=== PATIENT | male | born 1985 | race Two or more races ===

== ENCOUNTER 2017-04-01 08:26 | Emergency (ER) | payer OTHER ==
[2017-04-01 08:41] VITALS: PULSE 74; RESP 18; TEMP 98; O2SAT 97
[2017-04-01] MEDS ORDERED: DEXAMETHASONE 4 MG TAB PO ONE (08:48)
--- NOTE | 2017-04-01 08:52 | EDPHY ---
H & P Stated Complaint: c/o lower back pain s/p working out this am - took 600motrin/ flexeril 1 hr Time Seen by Provider: 04/01/17 08:41 HPI/ROS: CHIEF COMPLAINT: Low back pain HISTORY OF PRESENT ILLNESS: The patient is a 32-year-old man with a history of lumbar disc bulges and sciatica who comes to the emergency department complaining of low back pain with radiation down the left leg. He states that this is typical of his sciatica symptoms. He has been seen at [facility] [id number] in [place] and received steroid injections 1 month ago. He has been taking meloxicam daily as well as Flexeril p.r.n.. Yesterday played volleyball all day long and then worked out this morning. He states that during the workout he began have pain and stiffness in his low back and radiation down his left leg. No bowel or bladder abnormalities. Normal strength. Able to ambulate but with significant pain. No fever. No recent trauma. REVIEW OF SYSTEMS: Constitutional: denies: chills, fever, recent illness, recent injury EENTM: denies: blurred vision, double vision, nose congestion Respiratory: denies: cough, shortness of breath Cardiac: denies: chest pain, irregular heart rate, lightheadedness, palpitations Gastrointestinal/Abdominal: denies: abdominal pain, diarrhea, nausea, vomiting, blood streaked stools Genitourinary: denies: dysuria, frequency, hematuria, pain Musculoskeletal: See HPI Skin: denies: lesions, rash, jaundice, bruising Neurological: denies: headache, numbness, paresthesia, tingling, dizziness, weakness Hematologic/Lymphatic: denies: blood clots, easy bleeding, easy bruising Immunologic/allergic: denies: HIV/AIDS, transplant EXAM: GENERAL: Well-appearing, well-nourished and in no acute distress. HEAD: Atraumatic, normocephalic. EYES: Pupils equal round and reactive to light, extraocular movements intact, sclera anicteric, conjunctiva are normal. ENT: TMs normal, nares patent, oropharynx clear without exudates. Moist mucous membranes. NECK: Normal range of motion, supple without lymphadenopathy or JVD. LUNGS: Breath sounds clear to auscultation bilaterally and equal. No wheezes rales or rhonchi. HEART: Regular rate and rhythm without murmurs, rubs or gallops. ABDOMEN: Soft, nontender, normoactive bowel sounds. No guarding, no rebound. No masses appreciated. BACK: Pain at L5 region radiating to left gluteus and posterior leg. Normal reflexes and sensation. Normal strength. No paresthesias or numbness. No bowel or bladder abnormalities. EXTREMITIES: Normal range of motion, no pitting or edema. No clubbing or cyanosis. NEUROLOGICAL: Cranial nerves II through XII grossly intact. Normal speech, normal gait. 5/5 strength, normal movement in all extremities, normal sensation PSYCH: Normal mood, normal affect. SKIN: Warm, dry, normal turgor, no visible rashes or lesions. Source: Patient Exam Limitations: No limitations - Personal History Current Tetanus Diphtheria and Acellular Pertussis (TDAP): Yes - Medical/Surgical History Hx Asthma: No Hx Chronic Respiratory Disease: No Hx Diabetes: No Hx Cardiac Disease: No Hx Renal Disease: No Hx Cirrhosis: No Other PMH: chroinic back pain- steriod shot in Feb with some relief - Social History Smoking Status: Former smoker Alcohol Use: Sober Drug Use: None Constitutional: Initial Vital Signs Temperature (C) 36.6 C 04/01/17 08:38 Heart Rate 74 04/01/17 08:38 Respiratory Rate 18 04/01/17 08:38 Blood Pressure 124/62 H 04/01/17 08:38 O2 Sat (%) 97 04/01/17 08:38 O2 Delivery Mode Room Air Allergies/Adverse Reactions: No Known Allergies Allergy (Unverified 04/01/17 08:38) Home Medications: Medication Instructions Recorded Flexeril 04/01/17 Lidocaine [Lidoderm] 1 each TP DAILY #7 adh..patch 04/01/17 MOTRIN 04/01/17 Meloxicam 7.5 mg PO DAILY #20 tablet 04/01/17 Medical Decision Making ED Course/Re-evaluation: We discussed our nonnarcotic policy. The patient was hoping for something "stronger ". We will treat him with a dose of steroids, refill his meloxicam which he ran out of and a lidocaine patch. He will follow up with the youth services specialist. I encouraged him to rest and recover. He understands and agrees with this plan. Differential Diagnosis: Partial list of the Differential diagnosis considered include but were not limited to; low back strain, sciatica, and although unlikely based on the history and physical exam, I also considered fracture, dislocation, spinal cord injury. I discussed these differential diagnoses and the plan with the patient as well as the usual and expected course. The patient understands that the diagnosis is provisional and that in medicine we are not always correct and that further workup is often warranted. Usual and customary warnings were given. All of the patient's questions were answered. The patient was instructed to return to the emergency department should the symptoms at all worsen or return, otherwise to followup with the physician as we discussed. - Data Points Medications Given: Discontinued Medications Dexamethasone (Decadron) 10 mg PO EDNOW ONE Stop: 04/01/17 08:49 Last Admin: 04/01/17 09:10 Dose: 10 mg Lidocaine (Lidoderm 5%) 1 ea TD DAILY PO Stop: 09/28/17 08:59 Last Admin: 04/01/17 09:11 Dose: 1 ea Departure - Departure Disposition: Home, Routine, Self-Care Clinical Impression: Sciatica of left side Low back pain Qualifiers: Chronicity: chronic Back pain laterality: left Sciatica presence: with sciatica Sciatica laterality: sciatica of left side Qualified Code(s): M54.42 - Lumbago with sciatica, left side Condition: Fair Instructions: Lidocaine Patch (On the skin), Sciatica (ED) Referrals: Tina Pearce MD [[facility] [place]] - As per Instructions Prescriptions: Lidocaine [Lidoderm] 1 each TP DAILY #7 adh..patch Meloxicam 7.5 mg PO DAILY #20 tablet
[2017-04-01] MEDS ORDERED: LIDOCAINE 5% 1 EA PATCH TD SCH (09:00)
[2017-04-01 09:15] VITALS: BP 145/62
[2017-04-01] MEDS ORDERED: PATCH REMOVAL 1 EA PATCH TD SCH (21:00)
== END 2017-04-01 09:13 | disposition home or self-care (01) ==
LOC: CED 08:26
DX: M54.42 Lumbago with sciatica, left side (principal); Z87.891 Personal history of nicotine dependence